=== PATIENT | male | born 1960 | race Caucasian/White ===

== ENCOUNTER → 2019-06-01 00:01 | Outpatient (BNVA) | payer MEDICARE, SELFPAY | PROVIDERS: Family Provider Family Medicine; PCP Family Medicine; Referring Provider Family Medicine; Visit Provider Family Medicine | DX: E11.9 Type 2 diabetes mellitus without complications (principal) | CPT/HCPCS: 83036 ==

== ENCOUNTER → 2019-06-08 09:23 | Outpatient (BNVA) | payer MEDICARE, SELFPAY | PROVIDERS: Family Provider Family Medicine; PCP Family Medicine; Visit Provider Nurse Practitioner | DX: F20.89 Other schizophrenia (principal) | CPT/HCPCS: 99214; 99213 ==

== ENCOUNTER → 2019-06-15 10:45 | Outpatient (BNVA) | payer MEDICARE, SELFPAY | PROVIDERS: Family Provider Family Medicine; PCP Family Medicine; Referring Provider Family Medicine; Visit Provider Family Medicine | DX: E11.9 Type 2 diabetes mellitus without complications (principal); G47.33 Obstructive sleep apnea (adult) (pediatric); E03.9 Hypothyroidism, unspecified | CPT/HCPCS: 84443 ==

== ENCOUNTER 2021-08-06 11:34 | Emergency (ER) | payer OTHER, MEDICARE, SELFPAY ==
[2021-08-06 11:47] VITALS: BP 152/84; PULSE 73; RESP 18; TEMP 36.8; O2SAT 95; BMI 38.5
--- NOTE | 2021-08-06 11:51 | W.ED.BACK ---
HPI - Back Pain/Injury General: Chief Complaint: Back Pain/Injury Stated Complaint: [facility], ABD pain to back Time Seen by Provider: 08/06/21 11:51 Source: patient Mode of arrival: ambulatory Limitations: no limitations History of Present Illness: 89-year-old male presents emergency room with complaint of right-sided flank pain refers to a specific area of the right leg posterior axillary line area about the size of his fist this causes discomfort he has no dysuria urgency or frequency no difficulty with breathing no cough or shortness of breath. He states when he moves in a particular position or twist the pain is worse he has not had any rash. No hematuria no history of renal stones. Was referred here by [facility]. Symptoms began over the last 2 to 3 days when patient was doing a lot of lifting pushing and pulling and yard work. No radiation of pain into the groin or lower extremities. MD elicited complaint: back pain Pertinent past history: prior back pain Onset (ago): day(s) (3) Timing: intermittent Severity: mild Similar Symptoms Previously: Yes Quality: sharp Location: right flank Radiation: none Exacerbating factors: movement and other (Palpation over specific area) Relieving factors: immobilization (Remaining relatively immobile or avoiding flexion at the waist or twisting to the lower lumbar spine) Context: while lifting and turning/twisting Associated symptoms: Deny abdominal pain, arthralgias, chills, change in bowel habits, difficulty walking, dysuria, fatigue, fecal incontinence, fever(s), hematuria, myalgias, nausea, numbness, syncope, tingling/numbness/burning, urinary frequency, urinary urgency, vomiting or weakness Treatments prior to arrival: other (None) Review of Systems Const: Denies: fever(s), chills or fatigue ENMT: Denies: throat pain, ear or mastoid pain, nasal discharge or nasal congestion Card: Denies: syncope Resp: Denies: dyspnea, productive cough or non-productive cough GI: Denies: abdominal pain, nausea, vomiting, fecal incontinence or change in bowel habits : Reports: flank pain; Denies: difficulty urinating, dysuria, urinary frequency, urinary urgency, urinary hesitancy or hematuria Skin/Breast: Denies: rash or pruritus Neuro: Denies: difficulty walking PFSH ED PFSH: Medical History Other schizophrenia Family History Father Myocardial infarction, Onset Age: 50 Patient states massive heart attack. Social History Smoking and tobacco status: never smoked Alcohol intake: current Physical Exam Const: COMMON NORMALS: no acute distress GENERAL APPEARANCE: cooperative and comfortable ORIENTATION/CONSCIOUSNESS: Yes awake, Yes oriented to person, Yes oriented to place and Yes oriented to time HENMT: COMMON NORMALS: normocephalic, atraumatic and hearing grossly normal bilaterally HEAD & SCALP: normocephalic and atraumatic Neck/C-Spine: COMMON NORMALS: no JVD Resp: COMMON NORMALS: normal respiratory effort, No retractions, No use of accessory muscles and clear to auscultation bilaterally AUSCULTATION: clear to auscultation bilaterally Cardio: COMMON NORMALS: no JVD, regular rate, regular rhythm and No murmurs present (Cardio) RATE: regular rate RHYTHM: regular rhythm GI: COMMON NORMALS: Soft to palpation and No hepatosplenomegaly present AUSCULTATION: Yes normoactive bowel sounds PALPATION: Yes Soft to palpation, No Tenderness to palpation present (GI), No Guarding due to palpation present (GI) and Yes No hepatosplenomegaly present Extremity: COMMON NORMALS: normal to inspection, capillary refill normal, no clubbing, cyanosis or edema, no calf tenderness and no pedal edema Neuro: SENSORIUM/ORIENTATION: Yes oriented to person, Yes oriented to place and Yes oriented to time Skin: COMMON NORMALS: no rashes or lesions noted GENERAL SKIN EXAM: no rashes or lesions noted Course Vital Signs: Vital signs: Vital Signs Temperature 98.2 F 08/06/21 11:47 Pulse Rate 72 08/06/21 12:37 Respiratory Rate 18 08/06/21 12:37 Blood Pressure 170/62 08/06/21 12:37 Pulse Oximetry 96 08/06/21 12:37 MDM - Back Pain/Injury Medical Decision Making UA is clear. Patient has pain reproducible with movement and palpation in the low back/right flank there is no sign of zoster. Is not had any fever or any other symptoms discharge home with anti-inflammatories muscle relaxer follow-up with primary care as needed. Medical Records I reviewed the patient's medical records. Labs I reviewed the patient's lab results. Laboratory Results Urine Color Yellow (Yellow) 08/06/21 12:04 Urine Appearance Clear (CLEAR) 08/06/21 12:04 Urine pH 5 (5-7) 08/06/21 12:04 Ur Specific [place] 1.020 (1.005-1.030) 08/06/21 12:04 Urine Protein Neg (Negative) 08/06/21 12:04 Urine Glucose (UA) Norm (Normal) 08/06/21 12:04 Urine Ketones Negative (Negative) 08/06/21 12:04 Urine Blood Neg (Negative) 08/06/21 12:04 Urine Nitrate Negative (Negative) 08/06/21 12:04 Urine Bilirubin Neg (Negative) 08/06/21 12:04 Urine Urobilinogen Norm mg/dL (Negative) 08/06/21 12:04 Ur Leukocyte Esterase Negative (Negative) 08/06/21 12:04 Discharge Plan Discharge Patient Disposition: Home Clinical Impression: Musculoskeletal back pain Condition: Stable Prescriptions: New diclofenac sodium 75 mg tablet,delayed release (DR/EC) 75 mg PO Q12H PRN (Reason: pain) Qty: 20 0RF tizanidine 4 mg tablet 4 mg PO Q6H PRN (Reason: muscle spasticity) Qty: 20 0RF Rx Instructions: do not exceed 3 doses per 24 hrs No Action atorvastatin [Lipitor] 20 mg tablet 20 mg PO QDAY 0RF ibuprofen 200 mg capsule 600 mg PO BID 0RF escitalopram oxalate [Lexapro] 10 mg tablet 10 mg PO QDAY Qty: 30 2RF risperidone [Risperdal] 1 mg tablet 1 mg PO BID Qty: 60 2RF omega-3 fatty acids [Fish Oil Concentrate] 1,000 mg capsule 1,000 mg PO BID Qty: 60 2RF Discharge Orders: Discharge ED (Routine); Ordered 08/06/21 Ordered By: Matthew Whitlock Referrals: Edson Kang MD [Primary Care Provider] - Julissa Byers DO [Family Provider] - Discharge Diet: Usual diet Discharge Activity: Increase activity as tolerated Patient Instructions: Opioid Safety Coding Level of Care Code ED Aquatics Lifeguard for Chg Fwd Exam Comprehensive
[2021-08-06 11:57] VITALS: BP 170/62; PULSE 75; RESP 18; O2SAT 95
[2021-08-06 12:13] LABS: Add Urine Microscopic? NO; Charge for UA Resulting for Rev
[2021-08-06 12:27] LABS: Bilirubin Urine Neg (Negative); Blood Urine Neg (Negative); Glucose Urine UA Norm (Normal); Ketones Urine Negative (Negative); Leukocyte Esterase Urine Negative (Negative); Nitrate Urine Negative (Negative); Protein Urine Neg (Negative); Urine Appearance Clear (CLEAR); Urine Color Yellow (Yellow); Urobilinogen Urine Norm (Negative); pH Urine 5 (5-7)
[2021-08-06 12:37] VITALS: BP 170/62; PULSE 72; RESP 18; O2SAT 96
== END 2021-08-06 12:38 | disposition home or self-care (01) ==
PROVIDERS: Emergency Provider Family Medicine; PCP Family Medicine
DX: M54.9 Dorsalgia, unspecified (principal)
CPT/HCPCS: 81003; 99282

== ENCOUNTER → 2022-07-11 07:58 | Outpatient (BNVA) | payer OTHER, SELFPAY | PROVIDERS: PCP Family Medicine; Visit Provider Thoracic Surgery (Cardiothoracic Vascular Surgery) | DX: I96 Gangrene, not elsewhere classified (principal); L97.822 Non-pressure chronic ulcer of other part of left lower leg with fat layer exposed | CPT/HCPCS: 11042; 87070; 87186; 99213 ==

== ENCOUNTER → 2022-07-18 08:39 | Outpatient (BNVA) | payer OTHER, SELFPAY | PROVIDERS: PCP Family Medicine; Visit Provider Thoracic Surgery (Cardiothoracic Vascular Surgery) | DX: S81.812D Laceration without foreign body, left lower leg, subsequent encounter (principal); X58.XXXD Exposure to other specified factors, subsequent encounter | CPT/HCPCS: 11042; A6219 ==

== ENCOUNTER → 2022-07-25 09:23 | Outpatient (BNVA) | payer OTHER, SELFPAY | PROVIDERS: PCP Family Medicine; Visit Provider Thoracic Surgery (Cardiothoracic Vascular Surgery) | DX: I96 Gangrene, not elsewhere classified (principal); L97.822 Non-pressure chronic ulcer of other part of left lower leg with fat layer exposed | CPT/HCPCS: 11042 ==

== ENCOUNTER → 2022-08-01 09:19 | Outpatient (BNVA) | payer OTHER, SELFPAY | PROVIDERS: PCP Family Medicine; Visit Provider Thoracic Surgery (Cardiothoracic Vascular Surgery) | DX: I96 Gangrene, not elsewhere classified (principal); L97.822 Non-pressure chronic ulcer of other part of left lower leg with fat layer exposed | CPT/HCPCS: 11042; A6212 ==

== ENCOUNTER → 2022-08-19 09:05 | Outpatient (BNVA) | payer OTHER, SELFPAY | PROVIDERS: PCP Family Medicine; Visit Provider Nurse Practitioner Family | DX: I96 Gangrene, not elsewhere classified (principal); E11.622 Type 2 diabetes mellitus with other skin ulcer; L97.822 Non-pressure chronic ulcer of other part of left lower leg with fat layer exposed | CPT/HCPCS: 97597; A6212 ==

== ENCOUNTER → 2022-08-26 13:32 | Outpatient (BNVA) | payer OTHER, SELFPAY | PROVIDERS: PCP Family Medicine; Visit Provider Nurse Practitioner Family | DX: I96 Gangrene, not elsewhere classified (principal); E11.622 Type 2 diabetes mellitus with other skin ulcer; L97.822 Non-pressure chronic ulcer of other part of left lower leg with fat layer exposed | CPT/HCPCS: 97597 ==

== ENCOUNTER → 2022-09-02 10:31 | Outpatient (BNVA) | payer OTHER, SELFPAY | PROVIDERS: PCP Family Medicine; Visit Provider Nurse Practitioner Family | DX: E11.622 Type 2 diabetes mellitus with other skin ulcer (principal); L97.822 Non-pressure chronic ulcer of other part of left lower leg with fat layer exposed | CPT/HCPCS: 15271; A6206; A6250; Q4205 ==

== ENCOUNTER → 2022-09-09 10:11 | Outpatient (BNVA) | payer OTHER, SELFPAY | PROVIDERS: PCP Family Medicine; Visit Provider Nurse Practitioner Family | DX: E11.622 Type 2 diabetes mellitus with other skin ulcer (principal); L97.822 Non-pressure chronic ulcer of other part of left lower leg with fat layer exposed | CPT/HCPCS: 15271; A6206; Q4205 ==

== ENCOUNTER → 2022-09-16 13:28 | Outpatient (BNVA) | payer OTHER, SELFPAY | PROVIDERS: PCP Family Medicine; Visit Provider Nurse Practitioner Family | DX: E11.622 Type 2 diabetes mellitus with other skin ulcer (principal); L97.822 Non-pressure chronic ulcer of other part of left lower leg with fat layer exposed | CPT/HCPCS: 11102; 15271; 99204; A6206; A6250; Q4205 ==

== ENCOUNTER → 2022-09-23 10:24 | Outpatient (BNVA) | payer OTHER, SELFPAY | PROVIDERS: PCP Family Medicine; Visit Provider Nurse Practitioner Family | DX: E11.622 Type 2 diabetes mellitus with other skin ulcer (principal); L97.822 Non-pressure chronic ulcer of other part of left lower leg with fat layer exposed | CPT/HCPCS: 15271; A6206; A6250; Q4205 ==

== ENCOUNTER → 2022-10-02 10:07 | Outpatient (BNVA) | payer OTHER, SELFPAY | PROVIDERS: PCP Family Medicine; Visit Provider Nurse Practitioner Family | DX: I96 Gangrene, not elsewhere classified (principal); E11.622 Type 2 diabetes mellitus with other skin ulcer; L97.822 Non-pressure chronic ulcer of other part of left lower leg with fat layer exposed | CPT/HCPCS: 15271; A6206; A6250; Q4205 ==

== ENCOUNTER → 2022-10-09 13:06 | Outpatient (BNVA) | payer OTHER, SELFPAY | PROVIDERS: PCP Family Medicine; Visit Provider Nurse Practitioner Family | DX: I96 Gangrene, not elsewhere classified (principal); E11.622 Type 2 diabetes mellitus with other skin ulcer; L97.822 Non-pressure chronic ulcer of other part of left lower leg with fat layer exposed | CPT/HCPCS: 15271; A6206; A6250; Q4205 ==

== ENCOUNTER → 2022-10-21 10:11 | Outpatient (BNVA) | payer OTHER, SELFPAY | PROVIDERS: PCP Family Medicine; Visit Provider Nurse Practitioner Family | DX: I96 Gangrene, not elsewhere classified (principal); E11.622 Type 2 diabetes mellitus with other skin ulcer; L97.822 Non-pressure chronic ulcer of other part of left lower leg with fat layer exposed | CPT/HCPCS: 15271; A6206; A6212; A6250; Q4205 ==

== ENCOUNTER → 2022-10-28 09:18 | Outpatient (BNVA) | payer OTHER, SELFPAY | PROVIDERS: PCP Family Medicine; Visit Provider Nurse Practitioner Family | DX: Z09 Encounter for follow-up examination after completed treatment for conditions other than malignant neoplasm (principal) | CPT/HCPCS: 99212 ==

== ENCOUNTER → 2023-04-20 13:58 | Outpatient (BNVA) | payer OTHER, SELFPAY | PROVIDERS: PCP Emergency Medicine Emergency Medical Services; Visit Provider Nurse Practitioner Family | DX: D23.71 Other benign neoplasm of skin of right lower limb, including hip (principal); D69.2 Other nonthrombocytopenic purpura; L21.8 Other seborrheic dermatitis; L81.4 Other melanin hyperpigmentation; D22.9 Melanocytic nevi, unspecified; Z71.89 Other specified counseling; L85.3 Xerosis cutis; L57.8 Other skin changes due to chronic exposure to nonionizing radiation | CPT/HCPCS: 99214 ==

== ENCOUNTER 2023-10-06 07:06 | Emergency (ER) | payer OTHER, SELFPAY ==
[2023-10-06 07:12] VITALS: BP 162/89; PULSE 65; RESP 16; TEMP 36.6; O2SAT 96
--- NOTE | 2023-10-06 07:20 | ED_ITS ---
HPI - Wound/Laceration General: Chief Complaint: Wound/Laceration Stated Complaint: left hand ring finger lac Time Seen by Provider: 10/06/23 07:14 Source: patient Mode of arrival: ambulatory Limitations: no limitations History of Present Illness: This patient made his way to the emergency department this morning because of a accidental cut to his fourth finger of his nondominant left hand. He states he was cutting fruit and was distracted when he was talking to his and accidentally cut his finger. He denies other injury. He states he is able to move the finger normally and has sensation. He states his last tetanus shot was earlier this year. He denies any other injuries or complaints at this time. Place: home Patient tetanus UTD: Yes Context: accidental Associated symptoms: Reports no associated symptoms; Denies fever(s) Review of Systems Const: Denies: fever(s) Musc: Denies: neck pain Neuro: Denies: numbness in extremities or weakness in extremities Wilbert/Lymph: Denies: easy bruising or easy bleeding PFSH ED PFSH: Medical History Other schizophrenia Family History Father Myocardial infarction, Onset Age: 50 Patient states massive heart attack. Social History Smoking and tobacco/nicotine status: never used tobacco/nicotine Alcohol intake: current Substance/Drug Use: former Physical Exam Narrative: EXAM NARRATIVE: The patient is alert in no acute distress and cooperative. Const: COMMON NORMALS: no acute distress, average body habitus and patient oriented x3 HENMT: COMMON NORMALS: normocephalic and Normal nasal mucous membranes and turbinates present HEAD & SCALP: normocephalic NOSE: Normal nasal mucous membranes and turbinates present Eye: COMMON NORMALS: Equal, round and reactive pupils present PUPIL: Yes Equal, round and reactive pupils present Neck/C-Spine: COMMON NORMALS: full ROM Resp: COMMON NORMALS: normal respiratory effort EFFORT & INSPECTION: Yes able to speak in complete sentences Cardio: COMMON NORMALS: Peripheral pulses 2+ throughout PERIPHERAL PULSES: Peripheral pulses 2+ throughout Extremity: COMMON NORMALS: full ROM and capillary refill normal LEFT UPPER EXTREMITY: Yes hand & digits (Fourth finger diagonal laceration in the distal phalange ) Left hand and digits: Yes neurovascular exam (Normal) and Yes tendon exam (No involvement) Neuro: COMMON NORMALS: patient oriented x3, moves all extremities, no focal motor deficits and no sensory deficits noted Procedures Laceration Laceration 1: Site: hand (Fourth finger left) Side (If applicable): left Size (cm): 2.5 Description: linear Depth: simple, single layer Local Anesthetic: lidocaine 1% Pre-repair: wound explored (No vascular or tenderness involvement. Patient is neurovascular intact distal), irrigated extensively and deep structures intact Skin layer closed with: other (Prolene) Size (cm): 5-0 Number of sutures: 5 Technique: simple, interrupted Course Reevaluation(s): Reevaluation #1: Wound repaired patient stable for discharge Time: 07:47 Vital Signs: Vital signs: Vital Signs Temperature 97.9 F 10/06/23 07:12 Pulse Rate 65 10/06/23 07:12 Respiratory Rate 16 10/06/23 07:12 Blood Pressure 162/89 10/06/23 07:12 Pulse Oximetry 96 10/06/23 07:12 MDM - Wound/Laceration Medical Decision Making Patient sustained a clean knife wound to his nondominant left fourth digit accidentally while slicing fruit. Patient his tetanus was up-to-date. There was no neurovascular or tendinous involvement. The wound was repaired in an interrupted fashion using 5-0 Prolene 5 interrupted simple sutures. Length of the incision wound was 2.5 cm. We discussed wound care and return precautions and suture removal. No radiology studies performed this visit Discharge Plan Discharge Patient Disposition: Home Clinical Impression: Laceration of finger of left hand Condition: Stable Prescriptions: No Action atorvastatin [Lipitor] 20 mg tablet 20 mg PO QDAY ibuprofen 200 mg capsule 600 mg PO BID escitalopram oxalate [Lexapro] 10 mg tablet 10 mg PO QDAY Qty: 30 2RF risperidone [Risperdal] 1 mg tablet 1 mg PO BID Qty: 60 2RF omega-3 fatty acids [Fish Oil Concentrate] 1,000 mg capsule 1,000 mg PO BID Qty: 60 2RF sulfamethoxazole-trimethoprim [Bactrim DS] 800-160 mg tablet 1 tab PO BID Qty: 14 0RF diclofenac sodium 75 mg tablet,delayed release (DR/EC) 75 mg PO Q12H PRN (Reason: pain) Qty: 20 0RF tizanidine 4 mg tablet 4 mg PO Q6H PRN (Reason: muscle spasticity) Qty: 20 0RF Rx Instructions: do not exceed 3 doses per 24 hrs Discharge Orders: Discharge ED (Routine); Ordered 10/06/23 Ordered By: Isra Hurst Referrals: Ousmane Ceballos, [Primary Care Provider] - Discharge Diet: Usual diet Discharge Activity: Limit activity as instructed Patient Instructions: Opioid Safety, Pain Management Activity Restrictions/Additional Instructions: As we discussed you will need to keep this wound covered and a mile or rubber glove to protect it during your work related activities. Watch for any signs of redness drainage etc. The stitches should remove be removed in 7 to 10 days. If you have any concerns or questions you are welcome to return to the emergency department at any time. Coding Level of Care Code ED Senior [employer] Pl Sql Developer for Emilie Kearns
[2023-10-06 08:00] VITALS: BP 159/68; PULSE 64; O2SAT 97
== END 2023-10-06 08:04 | disposition home or self-care (01) ==
PROVIDERS: Emergency Provider Emergency Medicine; PCP Emergency Medicine Emergency Medical Services
DX: S61.215A Laceration without foreign body of left ring finger without damage to nail, initial encounter (principal); W26.0XXA Contact with knife, initial encounter; Y93.G1 Activity, food preparation and clean up; Y92.010 Kitchen of single-family (private) house as the place of occurrence of the external cause
CPT/HCPCS: 12001; 99282

== ENCOUNTER → 2024-04-12 13:20 | Outpatient (BNVA) | payer OTHER, SELFPAY | PROVIDERS: PCP Emergency Medicine Emergency Medical Services; Visit Provider Student in an Organized Health Care Education/Training Program | DX: M67.442 Ganglion, left hand; R03.0 Elevated blood-pressure reading, without diagnosis of hypertension | CPT/HCPCS: 73130; 99204 ==

== ENCOUNTER → 2024-04-20 13:58 | Outpatient (BNVA) | payer OTHER, SELFPAY | PROVIDERS: PCP Emergency Medicine Emergency Medical Services; Visit Provider Nurse Practitioner Family | DX: D23.71 Other benign neoplasm of skin of right lower limb, including hip (principal); L81.4 Other melanin hyperpigmentation; L85.3 Xerosis cutis; Z12.83 Encounter for screening for malignant neoplasm of skin | CPT/HCPCS: 99213 ==

== ENCOUNTER 2024-05-09 07:44 | Day surgery (SDC) | payer OTHER, SELFPAY ==
[2024-05-09] VITALS (13 sets, daily range): BP systolic 154–201; BP diastolic 73–96; PULSE 53–68; RESP 16–18; TEMP 36.4–36.8; O2SAT 97–100; BMI 35.8
[2024-05-09] MEDS: sodium chloride 0.9% 1,000 ML 30 ML IV (08:14)
[2024-05-09] MEDS: acetaminophen 1,000 MG/100 ML PIGGYBACK 400 MG IV (08:14)
[2024-05-09] MEDS: ketorolac 30 mg/mL INJ IVP (08:15)
--- NOTE | 2024-05-09 08:33 | W.PM.OPSUD ---
Surgery/Procedure H&P Update DATE OF PROCEDURE: May 09, 2024 DATE H&P PERFORMED: 04/12/24 H&P UPDATE INFORMATION: I have reviewed H&P completed within last 30 days, I have examined patient prior to procedure and No changes to prior documentation PREOP DIAGNOSIS: Left index finger mucous cyst PRIMARY INDICATION FOR PROCEDURE: Left index finger mucous cyst PLANNED PROCEDURE: Operation Date: 05/09/24 09:55 Proposed Procedures p index finger mucous cyst excision(Left) - DO yuan Nance possible dorsal osteophyte ostectomy(Left) - Yossi Mason DO
[2024-05-09] MEDS: ceFAZolin 2,000 MG in sodium chloride 0.9% (plus) 50 ML 100 MG IV (09:00)
[2024-05-09] MEDS: lidocaine 1% 10 ML INJ XX (09:25)
[2024-05-09] MEDS: ROPivacaine 0.5% SDV 30 mL 150 MG INJECTION (09:25)
--- NOTE | 2024-05-09 09:42 | P.BOP_ITS ---
Date of Procedure: 05/09/2024 Surgeon: Yossi Mason DO Marine [employer] Professionals(s): David Mason PA-C Procedure(s) performed: Left index finger mucous cyst excision x 3 Findings of the procedure(s): Patient was found to have 3 individual mucous cyst left index finger communicating to the DIP joint these were all in separate different locations required 1 large flap was able to excise these to their entirety and sent these for pathology. Patient tolerated procedure well under local only anesthesia taken to recovery in stable condition Estimated blood loss: 1 Specimen(s) removed: 3 left index finger mucous cyst excised Post-operative diagnosis: Multiple left index finger mucous cyst
--- NOTE | 2024-05-09 09:43 | PM.OP ---
Operative Report Date of procedure: May 09, 2024 Surgeon: Yossi Mason DO Bioinformatics Technician: David Mason PA-C: PA was necessary for assistance in this case with hand positioning to execute the procedure, retraction and protection of neurovascular structures as well as to assist with wound closure and dressing application. Procedure: Preoperative diagnosis: Left index finger mucous cyst Post-op diagnosis: Left index?finger?mucous cyst x 3 Procedure done: Left index finger?mucous cyst excision x 3 Surgeon: Yossi Mason DO Estimated blood loss: 2 mL Tourniquet time Finger tourniquet 25 minutes IV fluids: 200 mL Complications: None Findings: See operative report narrative Condition: stable Disposition: same day Brief History: Patient presents to the outpatient setting with findings consistent with a left index finger?mucous cyst.? Patient has been worked up in the outpatient setting and is failed conservative treatment approach.? Patient wishes to proceed with surgical intervention.? We talked about the risk benefits complications and alternatives with surgical nonsurgical treatment options.? Understanding risk of surgery patient agrees to proceed with a left index finger?mucous cyst excision.? All questions answered. Procedure: Patient was seen evaluated in the preoperative holding area.? Consent was reviewed and signed with patient.? Correct extremity was then marked.? Patient this point in time was okay with proceeding with local only anesthesia. Patient was taken by the nursing staff into the operative suite. Patient was kept in the [facility] kept in supine position all bony prominences well-padded patient will be secured to the bed. ? Armboard was applied to the left upper extremity. This point time the left upper extremity was then prepped and draped in standard orthopedic fashion.? A final timeout was performed.? Patient received appropriate preoperative antibiotics. Prior to proceeding with incision sites I then performed digital block of the left index finger under sterile aseptic technique Finger turnicot was used over the left index finger to exsanguinate the digit. ? Left index finger was then identified as well as the?patient had focalized 3 mucous cyst throughout the DIP joint. I then from the eponychial fold made an incision up to the DIP joint and then made a standard L incision to create a full-thickness skin flap to identify the?mucous cyst.? Sharp scalpel excision and then switching to a Humboldt blade for meticulous dissection under loupe magnification identified a??mucous cyst which was then subsequently excised.? Identified the extensor mechanism this was protected carefully throughout my case.? At this point in time I individually dissected out each mucous cyst to its entirety excised this and sent for pathology I did this subsequently 3 times there is no disruption into the extensor tendon mechanism there was no prominent osteophytes these all were coagulated and burned at the bases it communicated to the DIP joint. Once satisfied with the excision these were sent for pathology and then finger turnicot was removed and hemostasis satisfactory bipolar electrocautery. I then thoroughly irrigated the wound bed and these were then closed with interrupted nylon suture.? Incision sites were then dressed with Xeroform 4 x 4's Kerlix Eva wrap and an Fabio wrap.? Patient was then awakened taken back to recovery in stable condition. Disposition: Patient taken to recovery in stable condition recovering well.? Dressing on in place clean dry and intact.? Patient was receive appropriate discharge instruction as well as pain medication postoperatively.? Patient may be allowed weightbearing as tolerated to the left hand and encourage range of motion once dressing come down after 72 hours.? Patient to follow-up with me in the office in 2 weeks.? Patient understands and agrees with current plan.? All questions answered.
== END 2024-05-09 10:11 | disposition home or self-care (01) ==
PROVIDERS: PCP Family Medicine; Visit Provider Student in an Organized Health Care Education/Training Program
PROC: (CPT 26160; principal; 2024-05-09 09:45)
DX: L72.8 Other follicular cysts of the skin and subcutaneous tissue (principal); Z87.891 Personal history of nicotine dependence
CPT/HCPCS: 26160; 88304; J0131; J0690; J1885; J2795; J7030

== ENCOUNTER → 2024-05-23 07:40 | Outpatient (BNVA) | payer OTHER, SELFPAY | PROVIDERS: PCP Family Medicine; Visit Provider Physician Assistant | DX: M67.442 Ganglion, left hand (principal) | CPT/HCPCS: 99024 ==